=== PATIENT | female | born 1960 | race Caucasian/White ===

== ENCOUNTER 2021-10-12 06:14 | Day surgery (SDC) | payer OTHER ==
[2021-10-06 14:22] VITALS: BMI 24.5
[2021-10-12] MEDS ORDERED: PROPOFOL 20 ML ONE ×2 (07:01→07:57)
[2021-10-12] MEDS ORDERED: KETOROLAC TROMETHAMINE 30 MG/1 ML VIAL ONE (07:01)
[2021-10-12] MEDS ORDERED: MIDAZOLAM HCL 2 MG/2 ML SINGLE DOSE VIAL ONE (07:01)
[2021-10-12] MEDS ORDERED: LIDOCAINE HCL 2% 100 MG/5 ML DISP.SYRIN ONE (07:01)
[2021-10-12] MEDS ORDERED: DEXAMETHASONE SOD PHOSPHATE 4 MG/1 ML VIAL ONE (07:01)
[2021-10-12] MEDS ORDERED: ONDANSETRON 4 MG/2 ML VIAL ONE (07:01)
[2021-10-12] MEDS ORDERED: BUPIVACAINE HCL/PF 0.25% (2.5MG/ML) 10 ML VIAL ONE (07:03)
[2021-10-12] MEDS ORDERED: LIDOCAINE HCL 2% (20ML MULTI-DOSE VIAL) ONE (07:04)
[2021-10-12] MEDS ORDERED: PROMETHAZINE HCL 25 MG/1 ML VIAL IVPUSH PRN (08:15)
[2021-10-12] MEDS ORDERED: LACTATED RINGERS SOLUTION 1,000 ML IV SCH (08:15)
[2021-10-12 09:26] VITALS: TEMP 97.4
[2021-10-12 09:31] VITALS: BP 135/78; PULSE 58
== END 2021-10-12 09:31 | disposition home or self-care (01) ==
LOC: FASU 06:14
PROVIDERS: ATTEND Orthopaedic Surgery Hand Surgery
PROC: 0LN70ZZ Release Right Hand Tendon, Open Approach (ICD-10-PCS; 2021-10-12)
PROC: 0LN70ZZ Release Right Hand Tendon, Open Approach (ICD-10-PCS; principal; 2021-10-12 07:50)
DX: M65.311 Trigger thumb, right thumb (principal); M65.321 Trigger finger, right index finger
CPT/HCPCS: 94760